=== PATIENT | female | born 1945 | race Caucasian/White ===

== ENCOUNTER 2023-01-20 10:58 | Day surgery (SDC) | payer MEDICARE, OTHER ==
[2023-01-16 16:48] LABS: BASOPHILS # (AUTO) 0.1 X10'3 (0-0.2); BASOPHILS % (AUTO) 1.2 % (0-1); EOSINOPHILS # (AUTO) 0.3 X10'3 (0-0.9); EOSINOPHILS % (AUTO) 5.1 % (0-6); LYMPHOCYTES # (AUTO) 1.6 X10'3 (1.1-4.8); LYMPHOCYTES % (AUTO) 30.4 % (21-51); MEAN CORPUSCULAR HEMOGLOBIN 30.2 PG (27.0-31.0); MEAN CORPUSCULAR HGB CONC 33.2 g/dL (33.0-36.5); MEAN CORPUSCULAR VOLUME 90.9 FL (78-98); MEAN PLATELET VOLUME 7.5 FL (7.4-10.4); MONOCYTES # (AUTO) 0.4 X10'3 (0-0.9); MONOCYTES % (AUTO) 8.3 % (2-12); NEUTROPHILS # (AUTO) 2.9 X10'3 (1.8-7.7); PRE OP HEMATOCRIT 39.2 % (35.0-45.0); PRE OP PLATELET COUNT 296 X10'3 (140-440); PRE OP WHITE BLOOD COUNT 5.2 10'3 (4.8-10.8); RED BLOOD COUNT 4.31 X10'6 (4.20-5.60); RED CELL DISTRIBUTION WIDTH 12.8 % (11.5-14.5)
[2023-01-16 17:08] LABS: ALBUMIN 4.2 G/DL (3.4-5.0); ALKALINE PHOSPHATASE 51 IU/L (46-116); BLOOD UREA NITROGEN 18 MG/DL (7-18); BUN/CREATININE RATIO 11.8 (10.0-20.0); CALCIUM 10.3 MG/DL (8.5-10.1); CHLORIDE 102 MMOL/L (99-107); CREATININE 1.53 MG/DL (0.40-0.90); PRE OP ALT 31 U/L (30-65); PRE OP ANION GAP 11 (8-16); PRE OP AST 22 U/L (10-37); PRE OP BILIRUB, TOTAL 0.3 MG/DL (0.0-1.0); PRE OP GLUCOSE 104 MG/DL (70-104); PRE OP POTASSIUM 3.8 MMOL/L (3.4-5.1); PRE OP SODIUM 139 MMOL/L (135-145); TOTAL CARBON DIOXIDE 26.3 MMOL/L (24-32); TOTAL PROTEIN 8.3 G/DL (6.4-8.2); eGFR 33 ML/MIN
[~2023-01-20] VITALS: Ht 160 cm; Wt 81.9 kg
[2023-01-20] VITALS (13 sets, daily range): BP systolic 126–157; BP diastolic 59–89; PULSE 79–97; RESP 9–17; TEMP 98.1; O2SAT 96–100
[~2023-01-20 10:58] MED LIST: CALC600T35 PO; CHLO-188 PO; FENO135C PO; HYDR-4353 PO; MULT-1085 PO; PANT20TA2 PO; ROSU5TAB PO; SOLI10TA2 PO; cefazolin 2gm/D5W 100mL 100 ML IV ONE; famotidine 20mg tablet PO ONE; ringers solution, lacted 1,000 ML IV SCH
[2023-01-20] MEDS ORDERED: ondansetron/PF 4mg/2ml inj IV PRN (12:25)
[2023-01-20] MEDS ORDERED: acetaminophen 1,000mg/100ml IV 100 ML IV PRN (12:25)
[2023-01-20] MEDS ORDERED: labetalol 20mg/4ml (5mg/ml) syringe IV PRN (12:25)
[2023-01-20] MEDS ORDERED: ringers solution, lacted 1,000 ML IV SCH (12:25)
[2023-01-20] MEDS ORDERED: morphine 4 MG/ML inj SYRINge IV PRN (12:25)
[2023-01-20] MEDS ORDERED: morphine 2 MG/ML inj. syringe IV PRN (12:25)
[2023-01-20] MEDS ORDERED: hydrALAZINE 20mg/ml inj. IV PRN (12:25)
[2023-01-20] MEDS ORDERED: proCHLORperazine 10 MG/2 ml inj IV PRN (12:25)
[2023-01-20] MEDS ORDERED: meperidine/PF 25mg/ml syringe IV PRN ×3 (12:25)
[2023-01-20] MEDS ORDERED: sevoflurane 250ml liquid IH ONE (12:42)
[2023-01-20] MEDS ORDERED: midazolam 1 mg/ML 2ml injection ONE (12:49)
[2023-01-20] MEDS ORDERED: fentaNYL /PF 50mcg/ml 5ml ampule ONE (13:02)
[2023-01-20] MEDS ORDERED: LIDOcaine 1% 30ml preserv. free vial IJ ONE (13:45)
[2023-01-20] MEDS ORDERED: BUPIVAcaine/PF 2.5 mg/ml (0.25%) 30ml vial IJ ONE (13:55)
[2023-01-20] MEDS ORDERED: methylene blue (5mg/ml) 50mg/10ml ampul IV ONE (13:56)
[2023-01-20] MEDS ORDERED: dexamethasone sod phosphate 4mg/ml inj. ONE (14:00)
[2023-01-20] MEDS ORDERED: ondansetron/PF 4mg/2ml inj ONE (14:00)
[2023-01-20] MEDS ORDERED: propofol inj 20 ML IV ONE (14:00)
[2023-01-20] MEDS ORDERED: LIDOcaine 2% (20mg/ml) 5ml vial ONE (14:00)
--- NOTE | 2023-01-20 14:26 | NUR ---
Received from OR via [facility] TO [facility] 5, accompanied by Anesthesiologist DR DE ANDA and report given by Anesthesiolgist. PT PRESEEENTS WITH PIV 20G RIGHT HAND, BREAST BINDER CDI, SPO2 100% MASK 6L, LR RUNNING AT 100MLS/HR, VSS. Addendum: 01/20/23 at 1434 by Beatriz Cheung RN, RN Amended: Links added.
[2023-01-20] MEDS ORDERED: HYDROcodone/acetaminophen 10/325mg tab PO ONE (14:55)
--- NOTE | 2023-01-20 16:06 | NUR ---
DC HOME: ALL DISCHARGE CRITERIA HAS BEEN MET. VSS, PAIN AT TOLERABLE LEVEL. ABLE TO SAFELY AMBULATE AND TRANSFER SELF. IV TAKEN OUT WITHOUT ANY COMPLICATIONS. ALL DISCHARGE INSTRUCTIONS COVERED WITH PATIENT AND ALL QUESTIONS ANSWERED. PATIENT TAKEN OUT VIA WHEELCHAIR TO PERSONAL VEHICLE WHERE FAMILY/FRIEND DROVE PATIENT HOME. Addendum: 01/20/23 at 1628 by Beatriz Cheung RN, RN Amended: Links added.
== END 2023-01-20 16:06 | disposition home or self-care (01) ==
LOC: PAS 10:58
PROVIDERS: ATTEND Surgery
DX: C50.412 Malignant neoplasm of upper-outer quadrant of left female breast (principal); N18.32 Chronic kidney disease, stage 3b; M19.90 Unspecified osteoarthritis, unspecified site; Z79.899 Other long term (current) drug therapy; Z88.6 Allergy status to analgesic agent; Z88.8 Allergy status to other drugs, medicaments and biological substances
CPT/HCPCS: 19301; 36415; 38525; 38900; 76098; 76998; 80053; 82948; 85025; J0131; J0690; J1100; J2250; J2270; J2405; J2704; J3010; J3490; J7030; J7120; Q9968; Z7506; Z7508; Z7512; A4215; A4618; A6258; A7000